=== PATIENT | female | born 1945 | race Caucasian/White ===

== ENCOUNTER → 2018-10-24 | Outpatient (CLI) | payer MEDICARE, OTHER ==
[~2018-10-24] MED LIST: ADVAIR 250-501 EACH; ALBUTEROL2.5 MG/31 INH; CALCIUM 500 +1 EAC5 PO; CALCIUM 500+D1 EAC2; CEFTIN 250 MG250 MG PO; FISH OIL 1,0001 EAC5; FISH OIL 1,0001 EAC7 PO; FLONASE 0.05%50 MCG NASAL; FOSAMAX40 MG PO; MUCINEX600 MG PO; PREDNISONE 20 M20 MG; PRILOSEC40 MG PO; PROVENTIL HFA6.7 G1; PROVENTIL HFA6.7 G1 INH; SINGULAIR 10 MG10 M1 PO
== END ==
LOC: M.RAD 15:03
DX: J45.21 Mild intermittent asthma with (acute) exacerbation (principal); R05 Cough